=== PATIENT | female | born 1975 | race Two or more races ===

== ENCOUNTER 2022-06-09 06:33 | Day surgery (SDC) | payer OTHER ==
[~2022-06-09 06:33] MED LIST: IRBESARTAN-HCT1 EAC1 PO
[2022-06-09] MEDS ORDERED: PERCOCET 5-3251 EACH PO (08:20)
[2022-06-09] MEDS ORDERED: RECTICARE30 GM TOP (08:20)
== END 2022-06-09 12:45 | disposition home or self-care (01) ==
LOC: CIR.AMB 06:33
PROVIDERS: ATTEND Surgery
DX: K62.0 Anal polyp (principal); K62.1 Rectal polyp; I10 Essential (primary) hypertension; Z91.013 Allergy to seafood; Z20.822 Contact with and (suspected) exposure to COVID-19